=== PATIENT | female | born 1980 | race Caucasian/White ===

== ENCOUNTER 2017-05-24 00:38 | Emergency (ER) | payer BC, OTHER ==
[2017-05-24 00:49] VITALS: BP 126/80; PULSE 86; TEMP 98.8; BMI 30.1
--- NOTE | 2017-05-24 00:53 | PDOC ---
History of Present Illness - General Chief Complaint: Edema Stated Complaint: SWELLING POST SURGICAL Time Seen by Provider: 05/24/17 00:48 History Source: Patient Exam Limitations: No Limitations - History of Present Illness Initial Comments: 05/24/17 00:57 This is a 37-year-old female who is status post abdominoplasty 3 days ago. Patient now comes in complaining of swelling and also is complaining of left calf pain. Patient denies any chest pain, shortness of breath, palpitations or any other complaints. Patient denies any fevers or chills. Patient had the procedure done in a outpatient setting. PAST MEDICAL HISTORY: no significant history PAST SURGICAL HISTORY: no significant history FAMILY HISTORY: no pertinant history SOCIAL HISTORY: Pt lives with family and is employed. MEDICATIONS: reviewed ALLERGIES: As per nursing notes Review of Systems General: No fevers or chills, no weakness, no weight loss HEENT: No change in vision. No sore throat,. No ear pain CardioVascular: No chest pain or shortness of breath Respiratory:No cough, or wheezing. Gastrointestinal: no nausea, vomitting, diarrhea or constipation, No rectal bleeding Genitourinary: No dysuria, hematuria, or frequency Musculoskeletal: No joint or muscle pain or swelling Neurologic: No headache, vertigo, dizziness or loss of consciousness Psychiatric: nor depression Skin: No rashes or easy bruising Endocrine: no increased thirst or abnormal weight change Allergic: no skin or latex allergy All other systems reviewed and normal Exam: General: Well-nourished well-developed individual, no acute distress HEENT: Throat: Normal, tonsils normal, no erythema or exudate Neck: Supple, no meningeal signs, no lymphadenopathy Eyes::Pupils equal reactive and round, extraocular motion intact Chest: Nontender to palpation Cardiac: S1-S2 normal, regular rate and rhythm, no murmurs rubs or gallops Respiratory: Lungs clear to auscultation bilateral Abdomen: Soft, nondistended, normal bowel sounds, There is a healing incision across the lower abdomen with a small area of dehiscence but no. Once or erythema from the area. In addition to that there is a moderate amount of bruising below the area of incision extending down to the upper part of the thigh and into the pubic area. There is some swelling of the pubic area secondary to the bruising. There is no increase in warmth, tenderness or erythema of the area. Extremities: Warm, dry, no cyanosis, clubbing, or edema, there is some mild tenderness on palpation of the posterior calf muscle there is no edema of the legs or feet there is no tender palpable cord in the medial thigh. Skin: No rashes Neuro: Alert and oriented x3, nonfocal exam, grossly intact, normal gait Psych: Patient is very anxious and pacing about in the emergency room Past History - Past Medical History Allergies/Adverse Reactions: Allergies Allergy/AdvReac Type Severity Reaction Status Date / Time Penicillins Allergy Severe Difficulty Verified 05/28/15 09:02 Breathing Sulfa (Sulfonamide Allergy Severe Difficulty Verified 05/28/15 09:02 Antibiotics) Breathing Home Medications: Ambulatory Orders Oxycodone HCl 5 mg PO Q4HWA PRN 05/24/17 Other medical history: OVARIAN CYSTS - Surgical History Abdominal Surgery: Yes (DERMOID CYST R ABDOMEN 2012) - Reproductive History (#): 1 Para: 0 Therapeutic (s) & number: Yes - Psycho/Social/Smoking Cessation Hx Anxiety: Yes Suicidal Ideation: No Smoking History: Current some day smoker Have you smoked in the past 12 months: Yes Number of Cigarettes Smoked Daily: 1 Information on smoking cessation initiated: Yes 'Breaking Loose' booklet given: 05/28/15 Hx Alcohol Use: Yes (OCCASIONAL) Substance Use Type: None *Physical Exam - Vital Signs Last Vital Signs Temp Pulse Resp BP Pulse Ox 98.8 F 86 18 126/80 100 05/24/17 00:46 05/24/17 00:46 05/24/17 00:46 05/24/17 00:46 05/24/17 00:46 *DC/Admit/Observation/Transfer Diagnosis at time of Disposition: Postoperative wound hematoma - Discharge Dispostion Disposition: HOME Condition at time of disposition: Stable - Patient Instructions Additional Instructions: Return to the emergency department immediately with ANY new, persistent or worsening symptoms. Continue any medications as previously prescribed by your physician. You should follow up with your primary doctor as soon as possible regarding today's emergency department visit. . Please make sure your doctor reviews the results of your emergency evaluation. Thank you for coming to the Emergency Department today for your care. It was a pleasure to see you today. Please note that your evaluation is INCOMPLETE until you follow-up with your doctor.
== END 2017-05-24 02:13 | disposition home or self-care (01) ==
LOC: FER 00:38
DX: L76.32 Postprocedural hematoma of skin and subcutaneous tissue following other procedure (principal); F17.210 Nicotine dependence, cigarettes, uncomplicated
CPT/HCPCS: 93971-TC; 99281-25

== ENCOUNTER 2017-06-08 09:20 | Emergency (ER) | payer BC, OTHER ==
[2017-06-08] MEDS ORDERED: LORazepam 1 MG TABLET PO ONE ×2 (09:41→11:00)
[2017-06-08] MEDS ORDERED: TETANUS AND DIPHTHERIA TOXOID 0.5 ML DISP.SYRIN IM ONE (09:41)
[2017-06-08] MEDS ORDERED: DIPHTH,PERTUSS(ACELL),TET 0.5 ML DISP.SYRIN IM ONE (09:42)
[2017-06-08] MEDS ORDERED: LORazepam 0.5 MG TABLET ONE ×2 (09:43→11:00)
--- NOTE | 2017-06-08 09:43 | PDOC ---
Attending Attestation - Resident Resident Name: Jos Maya - ED Attending Attestation I have performed the following: I have examined & evaluated the patient, The case was reviewed & discussed with the resident, I agree w/resident's findings & plan, Exceptions are as noted - HPI HPI: 06/08/17 09:42 Jagged irregular laceration to dorsum of right index finger. - Physicial Exam PE: 06/08/17 09:42 Finger nv intact, no deep structures involved - Medical Decision Making 06/08/17 09:43 Digital Block, Tetanus, Simple Repair Patient needs ativan for anxiety - not driving.
[2017-06-08 09:44] VITALS: BP 136/89; PULSE 82; TEMP 98.2; BMI 30.6
--- NOTE | 2017-06-08 09:49 | PDOC ---
History of Present Illness - General Chief Complaint: Injury Stated Complaint: RIGHT INDEX FINGER LACERATION Time Seen by Provider: 06/08/17 09:30 History Source: Patient Exam Limitations: No Limitations - History of Present Illness Initial Comments: 06/08/17 09:43 Patient is a 37F with history of anxiety here today complaining of a laceration on the dorsal aspect of her right index finger. It happened about a half hour ago. She dropped a casserole dish which broke and resulted in a laceration of her finger. Last tetanus unknown. She is able to flex and extend finger, but range of flexor motion is limited by pain. Today she finished a course of clindamycin for a possible cellulitis on the back of her read. Past History - Past Medical History Allergies/Adverse Reactions: Allergies Allergy/AdvReac Type Severity Reaction Status Date / Time Penicillins Allergy Severe Difficulty Verified 05/28/15 09:02 Breathing Sulfa (Sulfonamide Allergy Severe Difficulty Verified 05/28/15 09:02 Antibiotics) Breathing Home Medications: Ambulatory Orders Clindamycin [Cleocin -] 300 mg PO Q8H 06/08/17 - Surgical History Abdominal Surgery: Yes (DERMOID CYST R ABDOMEN 2012) - Reproductive History (#): 1 Para: 0 Therapeutic (s) & number: Yes - Psycho/Social/Smoking Cessation Hx Anxiety: Yes Suicidal Ideation: No Smoking History: Current some day smoker Have you smoked in the past 12 months: Yes Number of Cigarettes Smoked Daily: 1 Information on smoking cessation initiated: Yes 'Breaking Loose' booklet given: 05/28/15 Hx Alcohol Use: Yes (OCCASIONAL) Drug/Substance Use Hx: No Substance Use Type: None Review of Systems - Review of Systems Constitutional: No: Chills, Fever, Weakness HEENTM: No: Blurred Vision, Double Vision Respiratory: No: Cough, Shortness of Breath Cardiac (ROS): No: Chest Pain, Lightheadedness ABD/GI: No: Constipated, Diarrhea, Nausea, Vomiting : No: Dysuria Neurological: No: Headache, Numbness *Physical Exam - Vital Signs Last Vital Signs Temp Pulse Resp BP Pulse Ox 98.2 F 82 16 136/89 100 06/08/17 09:28 06/08/17 09:28 06/08/17 09:28 06/08/17 09:28 06/08/17 09:28 - Physical Exam Comments: 06/08/17 09:49 Gen: Well nourished, no acute distress, nervous appearing R hand: 4 cm laceration starting proximal to MCP, extending past MCP and curving to radial side of hand. Normal cap refill. Able to move MCP joint in flexion and extension, somewhat limited by pain Neuro: alert, oriented, no focal neuro deficits Procedures - Laceration/Wound Repair Right Posterior 2nd digit Wound Length: 2.6 to 5.0 cm Wound Explored: no foreign body present Wound's Depth, Shape: superficial, flap Irrigated w/ Saline: Yes Betadine Prep: No (not indicated) Anesthesia: 2% Lidocaine Amount of Anesthetic (ccs): 10 Wound Debrided: minimal Wound Repaired With: Sutures Suture Size/Type: 4:0, proline Number of Sutures: 5 (4 simple, 1 horizontal mattress) Sterile Dressing Applied: Yes Splint Applied: No Sling Applied: No Medical Decision Making - Medical Decision Making 06/08/17 11:05 37F with history of anxiety here today with finger laceration. Vital signs stable and normal. Distal pulses and range of motion intact. X-ray done to rule out foreign body. 2mg ativan given for patient's anxiety. 06/08/17 12:23 Wound closed as indicated in procedure note. No complications. Return precautions given. *DC/Admit/Observation/Transfer Diagnosis at time of Disposition: Laceration - Discharge Dispostion Disposition: HOME Condition at time of disposition: Good Admit: No - Referrals Referrals: Luciana Chatterjee [Primary Care Provider] - - Patient Instructions Printed Discharge Instructions: DI for Laceration Repair -- Finger Additional Instructions: Mrs Gallegos, I'm sorry about your accident today. I hope you are feeling better. Please either visit your PCP in 7 days or come back to see us for suture removal. Sincerely, Dr. Maya - Attestations Scribe Attestion: 06/08/17 12:26 I, Dr. Jos Maya, attest that this document has been prepared under my direction and personally reviewed by me in its entirety. I further attest, that it accurately reflects all work, treatment, procedures and medical decision -making performed by me.
[2017-06-08] MEDS ORDERED: LIDOCAINE HCL 2% (20ML MULTI-DOSE VIAL) NR ONE (10:15)
== END 2017-06-08 12:46 | disposition home or self-care (01) ==
LOC: FER 09:20
PROC: 0HQFXZZ Repair Right Hand Skin, External Approach (ICD-10-PCS; principal; 2017-06-08)
DX: S61.210A Laceration without foreign body of right index finger without damage to nail, initial encounter (principal); W26.8XXA Contact with other sharp object(s), not elsewhere classified, initial encounter; Y93.89 Activity, other specified; Y92.9 Unspecified place or not applicable
CPT/HCPCS: 73140-TC-RT; 90715; 99282-25

== ENCOUNTER 2018-10-31 15:48 | Emergency (ER) | payer BC, OTHER ==
[2018-10-31 15:55] VITALS: BP 110/67; PULSE 67; TEMP 98.6; BMI 30.1
--- NOTE | 2018-10-31 16:06 | PDOC ---
History of Present Illness - General Chief Complaint: Rectal Bleed Stated Complaint: REDNESS AFTER TATTOO Time Seen by Provider: 10/31/18 15:53 - History of Present Illness Initial Comments: 10/31/18 16:19 Chief complaint: Skin reaction around recent tattoo History of present illness: Had a tattoo on her right arm, different colors and other tattoos, yesterday. Today has swelling and erythema around the tattoo itself. Denies ami pain or tenderness Review of systems: No fever/chills, headache, URI symptoms, sore throat, cough, chest pain, shortness of breath, abdominal pain, vaginal bleeding or discharge, urinary tract symptoms. Past medical history: Healthy female, no serious medical surgical problems past her present. Has had prior tattoos without reaction Family/social history reviewed and noncontributory Physical exam: Alert and oriented well-developed well-nourished no acute distress cooperative Afebrile, vital signs normal Large tattoo with green and red pigmentation right upper arm, deltoid area. There is surrounding erythema and warmth. There is no tenderness to palpation. No lymphadenopathy in the axilla Impression: Localized ALLERGIC reaction to dye, unlikely but possible early cellulitis Plan: Local care, antibiotics, and observation. Close follow-up as directed. Past History - Past Medical History Allergies/Adverse Reactions: Allergies Allergy/AdvReac Type Severity Reaction Status Date / Time Penicillins Allergy Severe Difficulty Verified 10/31/18 15:49 Breathing Sulfa (Sulfonamide Allergy Severe Difficulty Verified 10/31/18 15:49 Antibiotics) Breathing Home Medications: Ambulatory Orders Cephalexin Monohydrate [Keflex] 250 mg PO Q8H #15 capsule 10/31/18 COPD: No - Surgical History Abdominal Surgery: Yes (DERMOID CYST R ABDOMEN 2012) - Reproductive History (#): 1 Para: 0 Therapeutic (s) & number: Yes - Suicide/Smoking/Psychosocial Hx Smoking History: Never smoked Have you smoked in the past 12 months: No Number of Cigarettes Smoked Daily: 1 Information on smoking cessation initiated: No 'Breaking Loose' booklet given: 05/28/15 Hx Alcohol Use: No Drug/Substance Use Hx: No Substance Use Type: None *Physical Exam - Vital Signs Last Vital Signs Temp Pulse Resp BP Pulse Ox 98.6 F 67 20 110/67 98 10/31/18 15:49 10/31/18 15:49 10/31/18 15:49 10/31/18 15:49 10/31/18 15:49 Moderate Sedation - Procedure Monitoring Vital Signs: Procedure Monitoring Vital Signs Temperature 98.6 F 10/31/18 15:49 Pulse Rate 67 10/31/18 15:49 Respiratory Rate 20 10/31/18 15:49 Blood Pressure 110/67 10/31/18 15:49 O2 Sat by Pulse Oximetry (%) 98 10/31/18 15:49 *DC/Admit/Observation/Transfer Diagnosis at time of Disposition: Contact dermatitis and eczema - Discharge Dispostion Disposition: HOME Condition at time of disposition: Stable Decision to Admit order: No - Prescriptions Prescriptions: Cephalexin Monohydrate [Keflex] 250 mg PO Q8H #15 capsule - Referrals Referrals: Elaine Ramírez [Staff Physician] - 3 days - Patient Instructions Printed Discharge Instructions: DI for Contact Dermatitis Additional Instructions: Warm compresses. Rest and elevation of the arm. Antibiotic as directed. Recheck in 3 days, or sooner if redness spreads, there is more pain, or there is fever. Take precautions for vaginal yeast infection or gastrointestinal upset. - Post Discharge Activity
== END 2018-10-31 16:29 | disposition home or self-care (01) ==
LOC: FER 15:48
DX: L25.9 Unspecified contact dermatitis, unspecified cause (principal); L30.9 Dermatitis, unspecified; Z72.0 Tobacco use
CPT/HCPCS: 99281-25

== ENCOUNTER 2020-08-26 12:44 | Emergency (ER) | payer BC, OTHER ==
[2020-08-26 12:57] VITALS: BP 126/74; PULSE 62; BMI 30.6
--- NOTE | 2020-08-26 12:57 | PDOC ---
History of Present Illness - General Chief Complaint: Urinary Problem Stated Complaint: URINARY SYMPTOMS Time Seen by Provider: 08/26/20 12:45 - History of Present Illness Initial Comments: 08/26/20 13:02 40yo female prseents with dyuria, freq, and pelvic/back pain - burning since thursday. Pt states she was seent at [facility] urgent care for evaluation. States she underwent ultrasound imaging and was diagnosed with a UTI. Pt states she has been taking macrobid since thursday, still with dysuria today. States still with back and pelvic pain. Pt staets she finished her macrobid today. Pt states she has been taking tylenol for pain. She denies vaginal complaints. Pt had an IUD removed over a year ago. Pt states she also had a small bm today, feels full and constipated. Pt denies n/v. Denies f/c. Denies trauma. Denies cp/sob. Pt denies all other complaints. 08/26/20 13:30 PMhx: dermoid cyst PShx: tummy tuck, abdominoplasty, dermoid cyst removal all: pcn, sulfa Past History - Medical History Allergies/Adverse Reactions: Allergies Allergy/AdvReac Type Severity Reaction Status Date / Time Penicillins Allergy Severe Difficulty Verified 10/31/18 15:49 Breathing Sulfa (Sulfonamide Allergy Severe Difficulty Verified 10/31/18 15:49 Antibiotics) Breathing Home Medications: Ambulatory Orders Acetaminophen [Tylenol -] 1,000 mg PO PRN PRN 08/26/20 Docusate Sodium [Colace] 100 mg PO BID #20 capsule 08/26/20 Nitrofurantoin Monohyd/M-Cryst [Macrobid -] 100 mg PO BID 08/26/20 Polyethylene Glycol 3350 [Miralax (For Bowel Prep) -] 17 gm PO DAILY #1 bottle 08/26/20 COPD: No - Surgical History Abdominal Surgery: Yes (DERMOID CYST R ABDOMEN 2012) - Reproductive History (#): 1 Para: 0 Therapeutic (s) & number: Yes - Psycho-Social/Smoking History Smoking History: Never smoked Have you smoked in the past 12 months: No Number of Cigarettes Smoked Daily: 1 'Breaking Loose' booklet given: 05/28/15 Review of Systems - Review of Systems Able to Perform ROS?: Yes Is the patient limited Bengali proficient: No Constitutional: No: Chills, Fever HEENTM: No: Nose Congestion, Throat Pain Respiratory: No: Cough, Shortness of Breath Cardiac (ROS): No: Chest Pain ABD/GI: Yes: Constipated, Other (pelvic pain). No: Diarrhea, Nausea, Vomiting : Yes: Burning, Dysuria, Pain. No: Flank Pain Musculoskeletal: Yes: Back Pain. No: Neck Pain Neurological: No: Headache, Numbness, Paresthesia, Weakness, Ataxia All Other Systems: Reviewed and Negative *Physical Exam - Vital Signs 08/26/20 13:05 Selected Entries 08/26/20 12:44 Pulse Rate 62 Respiratory 20 Rate Blood Pressure 126/74 Blood Pressure 91 Mean O2 Sat by Pulse 100 Oximetry (%) Weight 78.471 kg - Physical Exam General Appearance: Yes: Nourished, Appropriately Dressed. No: Apparent Distress HEENT: positive: EOMI, Normal Voice Neck: positive: Supple Respiratory/Chest: positive: Lungs Clear, Normal Breath Sounds. negative: Resp iratory Distress Cardiovascular: positive: Regular Rhythm, Regular Rate, S1, S2. negative: Edema Gastrointestinal/Abdominal: positive: Soft, Tenderness (b/l pelvic ttp, suprapubic ttp). negative: Guarding, Rebound Musculoskeletal: positive: Normal Inspection. negative: CVA Tenderness Extremity: positive: Normal Capillary Refill, Normal Inspection, Normal Range of Motion, Other (ambulatory with a steady gait) Integumentary: positive: Normal Color, Dry, Warm Neurologic: positive: Fully Oriented, Alert, Normal Mood/Affect ED Treatment Course - LABORATORY CBC & Chemistry Diagram: 08/26/20 13:18 08/26/20 13:10 Medical Decision Making - Medical Decision Making 08/26/20 13:06 a/p: 40yo female with pelvic pain since thursday -has been treated for a uti -pt denies f/c -pelvic and back burning -states there has been some blood in her urine -ambulatory with a steady gait -no radiation of her back pain down her legs, no weakness, no loss of control of bowel or bladder -concern for cystitis that failed outpt therapy, concern for poss renal colic, hx of ovarian cysts -will send ua, labs, tvus/renal ultrasound -toradol pending upreg, ivf 08/26/20 13:13 ua neg except for blood will send for ct imaging for poss stone instead of xrays and ultrasound, pt underwent ultrasound imaging at [facility] that did not show a cyst 08/26/20 13:29 pt states she recently was started on a high fiber diet, eating more "cleanly". states she has been drinking a lot of water, but has been constipated for the last couple of days, unable to recall when last normal bm was. states she had a small bm this am. also states she has felt she has gas, gas pains, sometimes able to pass gas 08/26/20 14:12 labs reviewed - no elevated wbc, normal renal function ct pending awaiting transfer to [facility] for [facility] imaging, pt updated on the wait for an ambulance 08/26/20 16:07 ct shows a L renal cyst no appy small fat containing umbilical hernia, no sbo, there is evidence of fecal residue in the colon ct findings discussed with the patient discussed follow up with [facility] also discussed GI bowel regimen will give rx for miralax and colace discussed labs will give [facility] and nephro follow up answered all questions. Discharge - Discharge Information Problems reviewed: Yes Clinical Impression/Diagnosis: Pelvic pain, Fecal retention, Renal cyst, left Condition: Stable Disposition: HOME - Admission No - Additional Discharge Information Prescriptions: Docusate Sodium [Colace] 100 mg PO BID #20 capsule Polyethylene Glycol 3350 [Miralax (For Bowel Prep) -] 17 gm PO DAILY #1 bottle - Follow up/Referral Referrals: Dick Mccullough MD [Staff Physician] - Oscar Hansen MD [Staff Physician] - Kiko Mills MD [Staff Physician] - Chaitanya Saunders MD [Staff Physician] - Luciana Chatterjee [Non Staff, Medical] - - Patient Discharge Instructions Patient Printed Discharge Instructions: DI for Pelvic Pain, DI for Constipation Additional Instructions: Please follow up with the extension specialist and your pmd this week. Please take tylenol or motrin as needed for pain. Please drink plenty of fluids. Please take the colace as prescribed. Please place 1 capful of miralax in 8 oz water each night. Follow this glass with another glass of water. If you develop diarrhea please stop taking the miralax. Please also follow up with the reconciliation coordinator for further evaluation of the blood in your urine and the incidental finding of a left renal cyst seen on your CT. Please return to the ER with any further concerns or complaints. - Post Discharge Activity
[2020-08-26 13:15] LABS: HCG,QUALITATIVE URINE Negative
[2020-08-26] MEDS ORDERED: KETOROLAC TROMETHAMINE 15 MG/ML VIAL IVPUSH ONE (13:18)
[2020-08-26] MEDS ORDERED: SODIUM CHLORIDE 0.9% 1000 ML INFUS.BAG IV ONE (13:18)
[2020-08-26 13:24] LABS: EPITHELIAL CELLS FEW /hpf
[2020-08-26 13:44] LABS: BASO % 1.2 % (0-2.0); EOS % 4.8 % (0-4.5); HEMATOCRIT 40.1 % (32.4-45.2); HEMOGLOBIN 13.4 GM/dl (10.7-15.3); LYMPH % 13.4 % (8-40); MCH 30.4 pg (25.7-33.7); MCHC 33.5 g/dl (32.0-36.0); MEAN CELL VOLUME 90.7 fl (80-96); MEAN PLT VOLUME 9.3 fl (7.5-11.1); MONO % 5.1 % (3.8-10.2); NEUT % 75.5 % (42.8-82.8); PLATELET COUNT 221 K/MM3 (134-434); RBC 4.42 M/mm3 (3.60-5.2); RDW 11.5 % (11.6-15.6)
[2020-08-26 13:56] LABS: ALBUMIN 4.1 g/dl (3.4-5.0); BILIRUBIN,TOTAL 0.5 mg/dl (0.2-1); CALCIUM 8.9 mg/dl (8.5-10); CREATININE 0.7 mg/dl (0.55-1.3); POTASSIUM 4.1 mmol/L (3.5-5.1); TOT PROT 7.1 g/dl (6.4-8.2)
== END 2020-08-26 16:19 | disposition home or self-care (01) ==
LOC: FER 12:44
PROC: 3E0333Z Introduction of Anti-inflammatory into Peripheral Vein, Percutaneous Approach (ICD-10-PCS; principal; 2020-08-26)
DX: R10.2 Pelvic and perineal pain (principal); K56.41 Fecal impaction; N28.1 Cyst of kidney, acquired
CPT/HCPCS: 36415; 74176-TC; 80053; 81003; 81015; 84703; 85025; 87086; 99285-25